=== PATIENT | female | born 1965 | race Caucasian/White ===

== ENCOUNTER 2017-03-02 04:17 | Emergency (ER) | payer OTHER ==
[~2017-03-02] VITALS: Ht 162.6 cm; Wt 82.0 kg
[2017-03-02 04:19] VITALS: Ht 162.6 cm; Wt 82.0 kg
--- NOTE | 2017-03-07 23:40 | ERD ---
ER Documentation Chief Complaint Date/Time DATE: 03/07/17 TIME: 23:38 Chief Complaint Bug in ear while sleeping 2 hours [address]AD HAND HPI Patient is a 51-year-old female presenting to the emergency department with complaints of feeling a bug in her left ear for the past 2 hours which awoke her from sleep. Symptoms are intermittent. Mild in severity. No significant pain. She denies blood from the ear. She denies fevers, chills, or other symptoms at this time. ROS All systems reviewed and are negative except as per history of present illness. Allergies Allergies: Coded Allergies: No Known Allergy (Unverified , 03/02/17) PMhx/Soc Medical and Surgical Hx: pt denies Surgical Hx Hx Miscellaneous Medical Probl: Yes (GERD) Hx Alcohol Use: No Hx Substance Use: No Hx Tobacco Use: No Smoking Status: Never smoker Physical Exam Physical Exam Const: Nontoxic, well-appearing female in no acute distress. Head: Atraumatic Eyes: Normal Conjunctiva ENT: Normal External Ears, Nose and Mouth. Examination of the left ear shows no foreign body of the external auditory canal. Ext: No cyanosis, or edema Neur: Awake and alert Psych: Normal Mood and Affect Procedures/MDM 51-year-old female presents to the emergency department on examination I found no foreign body. The patient's ear was flushed stating she feels something in her left ear. With a bit of lidocaine and saline and no foreign body was produced, however the patient states she felt significantly improved and no longer felt a foreign body in her ear after treatment in the department. She was stable for discharge after that time. She was advised to return immediately for any new or worsening symptoms. She was advised to follow-up with her primary care physician within 1-2 days. Departure Diagnosis: Primary Impression: Ear foreign body Encounter type: initial encounter Laterality: left Qualified Code: T16.2XXA - Foreign body of left ear, initial encounter Condition: Fair Patient Instructions: Foreign Body, Ear Canal (Removed) [facility] Usted se benitez hecho un examen mdico de control que le indica que no est en jason condicin que requiera tratamiento urgente en el Departamento de Emergencia. Un estudio ms profundo y el tratamiento de gavin condicin pueden esperar sin ningn riesgo hasta que usted sea atendida/o en el consultorio de gavin mdico o jason cl sera. Es responsabilidad suya arreglar jason rachelle para el seguimiento del velia. MANEJO DE CONDICIONES NO URGENTES EN EL FUTURO 1) Si usted tiene un mdico de atencin primaria: Usted debera llamar a gavin mdico de atencin primaria antes de venir al departamento de emergencia. Despus de las horas de consultorio, gavin doctor o gavin asociado/a est disponible por telfono. El mdico o enfermero de zechariah en el servicio telefnico puede asesorarle por fred medio para atender el problema, o velia contrario se puede programar jason rachelle. 2) Si usted no tiene un mdico de atencin primaria: Llame al mdico o clnica de referencia que aparece abajo ace las horas de consultorio para hacer jason rachelle para que le vean. CLINICAS: [facility] [phone] [facility] [phone] [facility] [phone] [facility] [phone] [facility]. [place] [phone] [facility]. [phone] Additional Instructions: No mas mejor en 2-3 de león, regresar. Mas peor en 24 horas, regresear rapidamente. Ir a doctor primario in 5-7 de león. Usar instrucciones cuando oscar medicamento. CRISTIANO CHO PA-C Mar 07, 2017 23:40
== END 2017-03-02 06:11 | disposition home or self-care (01) ==
LOC: FTE 04:17
DX: H93.8X2 Other specified disorders of left ear (principal)
CPT/HCPCS: 99282